=== PATIENT | female | born 1955 | race Caucasian/White ===

== ENCOUNTER 2019-07-12 | Inpatient (IN) | payer BC ==
--- NOTE | 2019-07-11 14:21 | NUR ---
PT TO ROOM FOR EXAM
--- NOTE | 2019-07-11 14:30 | NUR ---
PT CHANGED TO GOWN. MONITORS IN PLACE. AO X 3. SKIN PINK WARM AND DRY. COMPLAINS OF SHARP PAIN LEFT LOWER ABDOMEN SINCE THIS MORNING
[2019-07-11 14:54] LABS: HEMATOCRIT 42.5 % (37.0-47.0); HEMOGLOBIN 13.5 g/dl (12.0-16.0); IMMATURE GRANULOCYTES 0.5 % (0.0-5.0); MEAN CORPUSCULAR HGB 26.4 pG CALC (26.0-32.0); MEAN CORPUSCULAR HGB CONC 31.8 g/dL CAL (32.0-36.0); NEUT# 17.75 thou/uL (2.00-7.15); RED BLOOD COUNT 5.12 mill/uL (4.20-5.60)
--- NOTE | 2019-07-11 15:00 | NUR ---
PT REPORTS NO RELIEF FROM PAIN AFTER TORADOL
--- NOTE | 2019-07-11 15:10 | NUR ---
PT MEDICATED FOR PAIN 09/26
[2019-07-11 15:14] LABS: ALKALINE PHOSPHATASE 70 u/l (38-126); AMYLASE 43 u/l (30-110); ANION GAP 10 (6-22 (CALC)); BILIRUBIN, TOTAL 0.8 mg/dL (0.0-1.4); BUN 15 mg/dL (8-23); BUN/CREATININE RATIO 28 (12-20 (CALC)); CARBON DIOXIDE 26 mmol/l (22-30); CHLORIDE 105 mmol/l (95-108); CREATININE 0.5 mg/dL (0.5-1.0); GFR > 60 ML/MIN (>=60 (CALC)); GFR FOR AFR.AMER. > 60 ML/MIN (>=60 (CALC)); LIPASE 43 u/l (23-300); POTASSIUM 3.8 mmol/l (3.5-5.1); SGOT/AST 23 u/l (9-36); SODIUM 136 mmol/l (137-146); TOTAL PROTEIN 6.7 g/dL (6.3-8.2)
--- NOTE | 2019-07-11 15:31 | NUR ---
PT REPORTS PAIN 4/10 AFTER MORPHINE
--- NOTE | 2019-07-11 16:32 | NUR ---
PT RESTING ON STRETCHER. WAITING CT RESULTS
--- NOTE | 2019-07-11 16:51 | NUR ---
SBAR PRINTED TO FLOOR
--- NOTE | 2019-07-11 17:44 | NUR ---
MED SURG UNABLE TO TAKE REPORT AT THIS TIME.
--- NOTE | 2019-07-11 17:49 | NUR ---
REPORT GIVEN TO NAVID MENDOZAPEOPLESOFT DEVELOPER
--- NOTE | 2019-07-11 18:05 | NUR ---
PT TAKEN VIA STRETCHER TO MED SURG. PT AO X 3. RESTING COMFORTABLY
--- NOTE | 2019-07-11 18:30 | NUR ---
PT ARRIVES TO MED/SURG VIA STRETCHER ACCOMPANIED BY JUANA MENDOZA. PT IS AWAKE, ALERT, ORIENTED X 3. LUNGS CLEAR, RA. ABDOMEN IS SOFT, TENDER, NO N/V/D. PT PROVIDED ORIENTATION TO ROOM. PT APPEARS TO BE IN NO ACUTE DISTRESS.
[2019-07-11 19:24] VITALS: BP 123/82
--- NOTE | 2019-07-11 19:58 | NUR ---
ASSESSMENT COMPLETED. IV SITE PATENT AND INFUSING ORDERED IVF WELL. DENIES NAUSEA AT THIS TIME, DINNER TRAY IS UNTOUCHED AT THIS TIME. C/O LLQ PAIN 08/27 AND MEDICATED WITH ORDERED PRN TORADOL, WILL REASSESS. UPDATED ON POC AND VERBALIZES UNDERSTANDING. EDIS GIBBONS APPLIED TO BLE. INSTRUCTED TO CALL FOR ANY NEEDS AND VERBALIZES UNDERSTANDING. CALL LIGHT IS IN REACH. WILL CONTINUE TO MONITOR.
[2019-07-11 20:19] VITALS: BP 114/76
--- NOTE | 2019-07-11 21:30 | NUR ---
REASSESSED PAIN AND NOW DOWN TO A 2/10; WILL CONTINUE TO MONITOR.
--- NOTE | 2019-07-12 | NUR ---
ATTEMPTED TO GET UA AND PT. MISSED THE CONTAINER, WILL ATTEMPT AGAIN ON NEXT VOID. PT. DENIES NEEDS FOR PAIN MEDS AT THIS TIME. CALL LIGHT IS IN REACH.
--- NOTE | 2019-07-12 02:45 | NUR ---
RESTING IN BED WITH EYES CLOSED; RESP. EVEN AND UNLABORED. CALL LIGHT IS IN REACH. WILL CONTINUE TO MONITOR.
[2019-07-12 04:36] VITALS: BP 104/67
[2019-07-12 04:44] LABS: URINE BILIRUBIN - DIPSTICK NEGATIVE (NEGATIVE); URINE BLOOD DIPSTICK NEGATIVE (NEGATIVE); URINE COLOR YELLOW; URINE GLUCOSE - DIPSTICK NEGATIVE (NEGATIVE); URINE KETONE NEGATIVE (NEGATIVE); URINE LEUK ESTERASE NEGATIVE (NEGATIVE); URINE NITRITE - DIPSTICK NEGATIVE (Negative); URINE PH 5.5 (4.5-8.0); URINE PROTEIN - DIPSTICK NEGATIVE (NEG-TRACE); URINE SPECIFIC GRAVITY 1.025; URINE UROBILINOGEN - DIPSTICK 0.2 E.U./dL (0.2)
--- NOTE | 2019-07-12 05:16 | NUR ---
PT. MEDICATED WITH ORDERED PRN TORADOL FOR LLQ PAIN AND GREGORY, WILL REASSESS. DENIES FURTHER NEEDS. CALL LIGHT IS IN REACH.
--- NOTE | 2019-07-12 05:47 | NUR ---
PT. C/O GREGORY AND MEDICATED WITH ORDERED PRN TYLENOL.
[2019-07-12 07:37] VITALS: BP 93/58
--- NOTE | 2019-07-12 09:43 | NUR ---
PT SEEN IN ROOM, IS ALERT AND ORIENTED X 3. ABDOMINAL DISCOMFORT IS MINIMAL. LUNGS CLEAR, RA. BM THIS MORNING.
--- NOTE | 2019-07-12 14:12 | NUR ---
PT SEEN BY DR ELMORE TODAY, DISAPPOINTED THAT SHE WILL NOT BE GOING HOME TODAY. PT CONTINUES AMBULATORY IN ROOM, NO DISTRESS.
--- NOTE | 2019-07-12 16:11 | NUR ---
NO CHANGE IN STATUS PT REMAINS AT REST IN THE BED WITHOUT USING CALL FOLEY FOR ANYTHING.
[2019-07-12 16:56] VITALS: BP 124/77
[2019-07-12 19:15] VITALS: BP 126/77
--- NOTE | 2019-07-12 19:50 | NUR ---
1950-Pt pleasant 63 y/o female. Denies pain. No s/s of distress. Assessment complete. Assessment unremarkable. Pt passing flatus. 1 liquid bowel movement noted. Bed low and locked. Call light and phone within reach. Pt stable. Will continue to monitor.
--- NOTE | 2019-07-12 23:55 | NUR ---
[id number]-Pt lying on left side asleep. No s/s of distress. Bed low and locked. Call light and phone within reach. Pt stable. Zosyn due soon, will be back to hang it. Will continue to monitor.
[2019-07-13 03:35] VITALS: BP 126/80
--- NOTE | 2019-07-13 03:55 | NUR ---
0355-Pt lying in bed. Vitals taken. No s/s of distress. Bed low and locked. Call light and phone within reach. Pt stable. Will continue to monitor.
[2019-07-13 05:22] LABS: IMMATURE GRANULOCYTES 0.3 % (0.0-5.0); MEAN CELL VOLUME 85.1 fL CALC (80.0-100.0); MEAN CORPUSCULAR HGB 26.9 pG CALC (26.0-32.0); MEAN CORPUSCULAR HGB CONC 31.5 g/dL CAL (32.0-36.0); NEUT# 5.64 thou/uL (2.00-7.15); RED BLOOD COUNT 4.17 mill/uL (4.20-5.60); RED CELL DISTRI WIDTH 13.9 % (11.5-15.5)
[2019-07-13 05:24] LABS: HEMATOCRIT 35.5 % (37.0-47.0); HEMOGLOBIN 11.2 g/dl (12.0-16.0)
[2019-07-13 05:50] LABS: ANION GAP 7 (6-22 (CALC)); BUN 8 mg/dL (8-23); BUN/CREATININE RATIO 15 (12-20 (CALC)); CALCULATED LDLCHOLESTEROL 134 mg/dL (62-129 (CALC)); CARBON DIOXIDE 22 mmol/l (22-30); CHLORIDE 112 mmol/l (95-108); CHOLESTEROL HDL RATIO 4.1 (<4.4 (CALC)); CREATININE 0.6 mg/dL (0.5-1.0); GFR > 60 ML/MIN (>=60 (CALC)); GFR FOR AFR.AMER. > 60 ML/MIN (>=60 (CALC)); HDL CHOLESTEROL 49 mg/dL (>=40); POTASSIUM 3.7 mmol/l (3.5-5.1); SODIUM 137 mmol/l (137-146); TOTAL CHOLESTEROL 199 mg/dl (0-199); TOTAL TRIGLYCERIDES 78 mg/dl (30-149); VLDL CHOLESTROL 16 mg/dl (1-41 (CALC))
--- NOTE | 2019-07-13 06:22 | NUR ---
0615-Pt lying on left side asleep. Zosyn administered. Pt denies pain. No s/s of distress. Bed low and locked. Call light and phone within reach. Pt stable. Will continue to monitor.
--- NOTE | 2019-07-13 07:20 | NUR ---
CHANGE OF SHIFT REPORT RECEIVED FROM SN JENNY. PT IS AWAKE, ALERT AND ORIENTED X 4. ABLE TO MAKE NEEDS KNOWN
[2019-07-13 08:00] VITALS: BP 128/81; BP 145/76
[2019-07-13] MEDS ORDERED: AMOXICILLIN/CL875 MG PO (10:01)
--- NOTE | 2019-07-13 12:21 | NUR ---
Discharge instructions given. Patient verbalizes understanding of same. Discharged in stable condition via Wheelchair to Home with mother. All belongings sent with pt.
== END 2019-07-13 12:19 | disposition home or self-care (01) | DRG 392 ==
PROVIDERS: Nurse Practitioner Family; ADMIT Internal Medicine
DX: K57.32 Diverticulitis of large intestine without perforation or abscess without bleeding (principal); E78.5 Hyperlipidemia, unspecified
CPT/HCPCS: J1650; Q9967

== ENCOUNTER 2020-08-13 18:06 | Observation (INO) | payer MEDICARE ==
[~2020-08-13] VITALS: Ht 157.5 cm; Wt 75.0 kg
[~2020-08-13 18:06] MED LIST: AMOXICILLIN/CL875 MG PO
--- NOTE | 2020-08-13 18:44 | NUR ---
WHEELED TO ROOM TRANSFERED TO BED, VOMITING
--- NOTE | 2020-08-13 19:15 | NUR ---
AWAITING MD EXAM.
[2020-08-13] MEDS ORDERED: GABAPENTIN300 M2 PO (19:18)
[2020-08-13] MEDS ORDERED: DULOXETINE HCL20 MG PO (19:19)
[2020-08-13 19:54] LABS: URINE BILIRUBIN - DIPSTICK NEGATIVE (NEGATIVE); URINE BLOOD DIPSTICK NEGATIVE (NEGATIVE); URINE COLOR YELLOW; URINE GLUCOSE - DIPSTICK NEGATIVE (NEGATIVE); URINE KETONE 40 mg/dL (NEGATIVE); URINE LEUK ESTERASE NEGATIVE (NEGATIVE); URINE PH 5.5 (4.5-8.0); URINE PROTEIN - DIPSTICK NEGATIVE (NEG-TRACE); URINE SPECIFIC GRAVITY >=1.030; URINE UROBILINOGEN - DIPSTICK 0.2 E.U./dL (0.2)
[2020-08-13 19:56] LABS: URINE NITRITE - DIPSTICK NEGATIVE (Negative)
--- NOTE | 2020-08-13 20:00 | NUR ---
RESTING QUIETLY AWAITING RESULTS.
[2020-08-13 20:19] LABS: IMMATURE GRANULOCYTES 0.3 % (0.0-5.0); MEAN CELL VOLUME 86.1 fL CALC (80.0-100.0); MEAN CORPUSCULAR HGB 26.5 pG CALC (26.0-32.0); MEAN CORPUSCULAR HGB CONC 30.8 g/dL CAL (32.0-36.0); NEUT# 10.18 thou/uL (2.00-7.15); RED BLOOD COUNT 5.17 mill/uL (4.20-5.60); RED CELL DISTRI WIDTH 13.9 % (11.5-15.5)
[2020-08-13 20:25] LABS: HEMATOCRIT 44.5 % (37.0-47.0); HEMOGLOBIN 13.7 g/dl (12.0-16.0)
[2020-08-13 20:44] LABS: ALBUMIN 4.5 g/dL (3.2-5.0); ALKALINE PHOSPHATASE 73 u/l (38-126); AMYLASE 62 u/l (30-110); ANION GAP 13 (6-22 (CALC)); BILIRUBIN, TOTAL 0.6 mg/dL (0.0-1.4); BUN 15 mg/dL (8-23); BUN/CREATININE RATIO 27 (12-20 (CALC)); CARBON DIOXIDE 24 mmol/l (22-30); CHLORIDE 105 mmol/l (95-108); CREATININE 0.6 mg/dL (0.5-1.0); GFR > 60 ML/MIN (>=60 (CALC)); GFR FOR AFR.AMER. > 60 ML/MIN (>=60 (CALC)); LIPASE 79 u/l (23-300); POTASSIUM 3.7 mmol/l (3.5-5.1); SGOT/AST 29 u/l (9-36); SODIUM 138 mmol/l (137-146); TOTAL PROTEIN 7.9 g/dL (6.3-8.2)
--- NOTE | 2020-08-13 21:00 | NUR ---
NO SIGNIFICANT CHANGE NOTED.
--- NOTE | 2020-08-13 22:00 | NUR ---
RESTING QUIETLY AWAITING CT.
--- NOTE | 2020-08-13 23:00 | NUR ---
SLEEPING NAD AWAITING TRANSPORT.
--- NOTE | 2020-08-13 23:57 | NUR ---
[facility] HERE TO TRANSPORT TO [facility] FOR CT SCAN. PT REMAINS COMFORTABLE.
--- NOTE | 2020-08-14 03:15 | NUR ---
RETURNED FROM [facility]
--- NOTE | 2020-08-14 04:48 | NUR ---
Admission Note Report Given to: KELLY CAMPBELL Transported by: Wheelchair X Stretcher Transported with: X Nurse Transporter X Patent IV O2 Contract Administrator Location: ICU X MS2
--- NOTE | 2020-08-14 04:50 | NUR ---
PT ARRIVED TO MED SURG UNIT VIA STRETCHER ACCOMPANIED BY JUVEWIRE STITCHER NURSE. PT APPEARS TO BE IN STABLE CONDITION. SELF AMBULATED TO THE BED. V/S ASSESSED, IVF NS BOLUS RUNNING AT THIS TIME. POC DISCUSSED, ASSESSMENT COMPLETED, PT ORIENTED TO ROOM CALL SYSTEM, LIGHTS, BED AND TV. REPORTS PAIN MUCH IMPROVED AT THIS TIME.
[2020-08-14 04:53] VITALS: BP 112/54
--- NOTE | 2020-08-14 05:18 | NUR ---
ADMISSION COMPLETED, LIGHTS AND TV ARE OFF. PT IS RESTING, DENIES ANY FURTHER COMFORT NEEDS.
--- NOTE | 2020-08-14 05:55 | NUR ---
PT MEDICATED ORDERS PROVIDE. DENIES ANY OTHER NEEDS AT THIS TIEM.
[2020-08-14 07:20] VITALS: BP 119/59
--- NOTE | 2020-08-14 07:57 | NUR ---
SHIFT CHANGE REPORT, PT SLEEPING SOUNDLY BUT AROUSES TO VERBAL STIMULI, ORIENTED, DENIES PAIN/DISCOMFORT AT THIS TIME, IVF INFUSING, CALL FOLEY IN REACH AND BED LOCKED IN LOWEST POSITION.
--- NOTE | 2020-08-14 11:54 | NUR ---
MEDICAL TEAM ROUNDED AND DISCUSSED PLAN OF CARE, PT STATED SHE IS HAVING SOME ABD PAINS NOW BUT SHE FEELS MUCH BETTER THAN SHE DID LAST EVENING, WILL CONTINUE TO MONITOR.
--- NOTE | 2020-08-14 16:00 | NUR ---
RELAXING COMFORTABLY, ALL NEEDS ADDRESSED, NO NEW COMPLAINS.
[2020-08-14 16:28] VITALS: BP 121/70
[2020-08-14 20:00] VITALS: BP 120/72
--- NOTE | 2020-08-14 20:00 | NUR ---
PT WOKE FOR ASSESSMENT. ALERT AND ORIENTED X4. RESP EVEN AND UNLABORED. SKIN WARM AND DRY. LUNGS CLEAR BILAT. ABD SOFT AND NONDISTENDED WITH BOWEL SOUNDS PRESENT IN ALL 4 QUADS. NO LOWER EXT EDEMA NOTED. PEDAL PULSES PALPATED BILAT. IV SITE PATENT IN LEFT A.C. WITH NSS AT 125CC/HR. PT OFFERS NO COMPLIANTS. AT THIS TIME. FREQUENT ROUNDS MADE. CALL FOLEY WITHIN REACH.
[2020-08-15 03:41] VITALS: BP 120/75
--- NOTE | 2020-08-15 04:30 | NUR ---
PT RESTING IN BED WITH EYES CLOSED. RESP EVEN AND UNLABORED . IV SITE IS PATENT. ASSESSMENT UNCHANGED. CALL FOLEY WITHIN REACH.
[2020-08-15 05:01] LABS: HEMATOCRIT 39.7 % (37.0-47.0); HEMOGLOBIN 11.9 g/dl (12.0-16.0); IMMATURE GRANULOCYTES 0.3 % (0.0-5.0); MEAN CELL VOLUME 88.8 fL CALC (80.0-100.0); MEAN CORPUSCULAR HGB 26.6 pG CALC (26.0-32.0); NEUT# 3.7 thou/uL (2.00-7.15); RED BLOOD COUNT 4.47 mill/uL (4.20-5.60); RED CELL DISTRI WIDTH 14.1 % (11.5-15.5)
[2020-08-15 05:24] LABS: ALKALINE PHOSPHATASE 48 u/l (38-126); ANION GAP 8 (6-22 (CALC)); BILIRUBIN, TOTAL 0.6 mg/dL (0.0-1.4); BUN 13 mg/dL (8-23); BUN/CREATININE RATIO 20 (12-20 (CALC)); CARBON DIOXIDE 25 mmol/l (22-30); CHLORIDE 109 mmol/l (95-108); CREATININE 0.7 mg/dL (0.5-1.0); GFR > 60 ML/MIN (>=60 (CALC)); GFR FOR AFR.AMER. > 60 ML/MIN (>=60 (CALC)); POTASSIUM 3.6 mmol/l (3.5-5.1); SGOT/AST 33 u/l (9-36); SODIUM 139 mmol/l (137-146)
[2020-08-15 05:28] LABS: ALBUMIN 3.3 g/dL (3.2-5.0); TOTAL PROTEIN 5.8 g/dL (6.3-8.2)
[2020-08-15 07:19] VITALS: BP 120/64
--- NOTE | 2020-08-15 08:42 | NUR ---
ASSESSMENT DONE. PATIENT IS ALERT AND ORIENT X3. PATIENT STATED PAIN IN ABD 5/10 AND HAVING MANY LOOSE BM. PATIENT DENIES PAIN MEDICATION AT THIS TIME. PO FLUIDS PROVIDED. SKIN INACT. LUNGS SOUND CLEAR. PATIENT DENIES ANY OTHER NEEDS AT THIS TIME. CALL LIGHT IN REACH.
[2020-08-15] MEDS ORDERED: CIPROFLOXACN500 MG PO (10:56)
[2020-08-15] MEDS ORDERED: FLORASTOR250 M1 PO (10:56)
[2020-08-15] MEDS ORDERED: METRONIDAZOL500 MG PO (10:56)
--- NOTE | 2020-08-15 12:15 | NUR ---
PATIENT GETTING READY FOR DC CALLING FOR HER RIDE. PATIENT DENIES ANY NEEDS AT THIS TIME. CALL LIGHT IN REACH.
--- NOTE | 2020-08-15 12:46 | NUR ---
Discharge instructions given. Patient verbalizes understanding of same. Discharged in stable condition via Wheelchair to Home with staff. All belongings sent with pt.
== END 2020-08-15 12:46 | disposition home or self-care (01) ==
LOC: ED 18:06 → ED-I 08-14 02:32 → ED 08-14 03:38 → MS2 08-14 03:39
PROVIDERS: Emergency Medicine; ADMIT Internal Medicine; ATTEND Internal Medicine
DX: K57.32 Diverticulitis of large intestine without perforation or abscess without bleeding (principal); E87.2 Acidosis; E78.5 Hyperlipidemia, unspecified; K58.9 Irritable bowel syndrome, unspecified; Z87.891 Personal history of nicotine dependence; Z20.822 Contact with and (suspected) exposure to COVID-19
CPT/HCPCS: G0378; J1650; Q9967; S0164

== ENCOUNTER 2021-02-27 18:42 | Emergency (ER) | payer MEDICARE ==
[~2021-02-27] VITALS: Ht 157.5 cm; Wt 75.0 kg
[~2021-02-27 18:42] MED LIST changes: +CIPROFLOXACN500 MG PO; +DULOXETINE HCL20 MG PO; +FLORASTOR250 M1 PO; +GABAPENTIN300 M2 PO; +METRONIDAZOL500 MG PO
[2021-02-27 19:48] LABS: HEMATOCRIT 43.5 % (37.0-47.0); HEMOGLOBIN 13.6 g/dl (12.0-16.0); IMMATURE GRANULOCYTES 0.1 % (0.0-5.0); MEAN CELL VOLUME 85.5 fL CALC (80.0-100.0); MEAN CORPUSCULAR HGB 26.7 pG CALC (26.0-32.0); MEAN CORPUSCULAR HGB CONC 31.3 g/dL CAL (32.0-36.0); NEUT# 14.08 thou/uL (2.00-7.15); RED BLOOD COUNT 5.09 mill/uL (4.20-5.60); RED CELL DISTRI WIDTH 13.5 % (11.5-15.5)
[2021-02-27 19:59] LABS: AMYLASE 65 u/l (30-110); ANION GAP 13 (6-22 (CALC)); BILIRUBIN, TOTAL 0.6 mg/dL (0.0-1.4); BUN 16 mg/dL (8-23); BUN/CREATININE RATIO 22 (12-20 (CALC)); CARBON DIOXIDE 26 mmol/l (22-30); CHLORIDE 103 mmol/l (95-108); CREATININE 0.7 mg/dL (0.5-1.0); GFR > 60 ML/MIN (>=60 (CALC)); GFR FOR AFR.AMER. > 60 ML/MIN (>=60 (CALC)); LIPASE 133 u/l (23-300); POTASSIUM 4.2 mmol/l (3.5-5.1); SGOT/AST 26 u/l (9-36); SODIUM 138 mmol/l (137-146)
[2021-02-27 20:00] LABS: ALBUMIN 4.4 g/dL (3.2-5.0); ALKALINE PHOSPHATASE 79 u/l (38-126); TOTAL PROTEIN 7.4 g/dL (6.3-8.2)
[2021-02-27 21:38] LABS: URINE BILIRUBIN - DIPSTICK NEGATIVE (NEGATIVE); URINE BLOOD DIPSTICK NEGATIVE (NEGATIVE); URINE COLOR YELLOW; URINE GLUCOSE - DIPSTICK NEGATIVE (NEGATIVE); URINE KETONE NEGATIVE (NEGATIVE); URINE LEUK ESTERASE NEGATIVE (NEGATIVE); URINE PH 5.5 (4.5-8.0); URINE PROTEIN - DIPSTICK NEGATIVE (NEG-TRACE); URINE SPECIFIC GRAVITY <=1.005; URINE UROBILINOGEN - DIPSTICK 0.2 E.U./dL (0.2)
[2021-02-27 21:40] LABS: URINE NITRITE - DIPSTICK NEGATIVE (Negative)
[2021-02-27] MEDS ORDERED: ONDANSETRON4 MG PO (21:47)
[2021-02-27] MEDS ORDERED: METRONIDAZOLE500 MG PO (21:47)
[2021-02-27] MEDS ORDERED: LORTAB 1010 MG PO (21:47)
[2021-02-27] MEDS ORDERED: CIPROFLOXACN500 MG PO (21:47)
[2021-02-27 22:38] VITALS: BP 97/52
== END 2021-02-27 22:40 | disposition home or self-care (01) ==
LOC: ED 18:42
PROVIDERS: Emergency Medicine
DX: K57.32 Diverticulitis of large intestine without perforation or abscess without bleeding (principal)
CPT/HCPCS: J1956; Q9967

== ENCOUNTER 2023-09-08 09:24 | Emergency (ER) | payer MEDICARE, MEDICAID ==
[~2023-09-08] VITALS: Ht 157.5 cm; Wt 70.7 kg
[2023-09-08] VITALS (10 sets, daily range): BP systolic 113–147; BP diastolic 50–82
[~2023-09-08 09:24] MED LIST changes: +DICYCLOMINE HCL20 MG PO; +EZETIMIBE10 MG PO; +LORTAB 1010 MG PO; +METRONIDAZOLE500 MG PO; +ONDANSETRON4 MG PO; +PROTONIX40 M2 PO
[2023-09-08] MEDS ORDERED: SODIUM CHLORIDE 0.9% 1,000 ML IV ONE (10:10)
[2023-09-08] MEDS ORDERED: KETOROLAC TROMETHAMINE 30 MG/ML SDV IV ONE (10:10)
[2023-09-08 10:50] LABS: BASO% 0.2 % (0-3); EOS% 0.2 % (0-8); HEMATOCRIT 44.1 % (37.0-47.0); IMMATURE GRANULOCYTES 0.2 % (0.0-5.0); LYMPH% 16.3 % (15-41); MEAN CELL VOLUME 86.5 fL CALC (80.0-100.0); MEAN CORPUSCULAR HGB 27.5 pG CALC (26.0-32.0); MEAN CORPUSCULAR HGB CONC 31.7 g/dL CAL (32.0-36.0); MONO% 11.8 % (2-13); NEUT# 3.49 thou/uL (2.00-7.15); NEUT% 71.3 % (42-76); RED BLOOD COUNT 5.1 mill/uL (4.20-5.60); RED CELL DISTRI WIDTH 14.4 % (11.5-15.5)
[2023-09-08] MEDS ORDERED: NAPROXEN500 MG PO (11:09)
[2023-09-08] MEDS ORDERED: ZOFRAN4 MG/TAB PO (11:09)
[2023-09-08] MEDS ORDERED: PAXLOVID PO (11:09)
[2023-09-08 11:11] LABS: ALBUMIN 4.2 g/dL (3.2-5.0); BILIRUBIN, TOTAL 0.5 mg/dL (0.02-1.3); CREATININE 0.6 mg/dL (0.5-1.0); POTASSIUM 3.8 mmol/l (3.5-5.1); TOTAL PROTEIN 7.2 g/dL (6.3-8.2)
[2023-09-08] MEDS ORDERED: ONDANSETRON HCl 4 MG/2 ML SDV IV ONE (11:20)
[2023-09-08] MEDS ORDERED: MORPHINE SULFATE 4 MG/ML VIAL IV ONE (11:20)
== END 2023-09-08 11:40 | disposition home or self-care (01) ==
LOC: ED 09:24
PROVIDERS: Family Medicine
DX: U07.1 COVID-19 (principal); R52 Pain, unspecified